=== PATIENT | female | born 1945 | race Caucasian/White ===

== ENCOUNTER 2021-06-04 17:22 | Emergency (ER) | payer MEDICARE ==
[2021-06-04] MEDS ORDERED: Aspirin Chewable 81 MG TAB ONE ×2 (18:31→19:00)
[2021-06-04] MEDS ORDERED: Nitroglycerin 2% Ointment 1 INCH/1 GM Packet ONE (18:32)
[2021-06-04] MEDS ORDERED: Aspirin 325 MG TAB PO SCH (18:45)
[2021-06-04 19:57] LABS: #Eosinphils 0.3 10x3/uL (0.0-0.5); #Monocytes 0.7 10x3/uL (0.0-1.1); #Neutrophils 3.5 10x3/uL (1.5-8.4); %Basophils 0.6 % (0.0-2.0); %Eosinophils 3.9 % (0.0-6.0); %Lymphocytes 28.2 % (18.0-47.0); %Monocytes 11.3 % (0.0-10.0); %Neutrophils 55.8 % (40.0-75.0); Hemoglobin 12.3 g/dL (12.0-15.5); Mean Corpuscular HGB CONC 31.1 g/dL (32.0-36.0); Mean Corpuscular Volume 86.6 fl (81.6-98.3); Mean Platelet Volume 11.1 fl (7.4-10.4); Platelet Count 212 10x3/uL (150-450); RBC Distribution Width 15.5 % (11.5-14.5); Red Blood Cell (RBC) Count 4.56 10x6/uL (3.90-5.03); White Blood Cell (WBC) Count 6.4 10x3/uL (3.5-10.5)
[2021-06-04 20:07] LABS: ALT (SGPT) 21 U/L (8-55); AST (SGOT) 23 U/L (5-34); Albumin 3.8 g/dL (3.4-4.8); Alkaline Phosphatase 84 U/L (40-110); Anion Gap 12 mmol/L (10-20); BUN (Urea Nitrogen) 22 mg/dL (9.8-20.1); Bilirubin, Total 0.4 mg/dL (0.2-1.2); CK (CPK) 51 U/L (29-168); Calc. Creatinine Clearance 0 mL/min (70-130); Calcium 9.2 mg/dL (7.8-10.44); Carbon Dioxide 26 mmol/L (23-31); Chloride 105 mmol/L (98-107); Globulin 3.5 g/dL (2.4-3.5); Glucose 97 mg/dL (83-110); Lipase 27 U/L (8-78); Potassium 4.3 mmol/L (3.5-5.1); Protein, Total 7.3 g/dL (5.8-8.1); Sodium 139 mmol/L (136-145)
== END 2021-06-04 21:22 | disposition home or self-care (01) ==
LOC: CSHERS 17:22
DX: M25.512 Pain in left shoulder (principal); I10 Essential (primary) hypertension
CPT/HCPCS: 71045; 80053; 82550; 83690; 84484; 85025; 93005

== ENCOUNTER 2021-06-06 09:40 | Observation (INO) | payer MEDICARE ==
[2021-06-06 10:28] LABS: #Eosinphils 0.1 10x3/uL (0.0-0.5); #Monocytes 0.7 10x3/uL (0.0-1.1); %Basophils 0.6 % (0.0-2.0); %Eosinophils 1.8 % (0.0-6.0); %Lymphocytes 24.2 % (18.0-47.0); %Monocytes 13.2 % (0.0-10.0); Hemoglobin 12.6 g/dL (12.0-15.5); Mean Corpuscular HGB CONC 31.3 g/dL (32.0-36.0); Mean Corpuscular Hemoglobin 26.8 pg (27.0-33.0); Mean Corpuscular Volume 85.5 fl (81.6-98.3); Mean Platelet Volume 11.5 fl (7.4-10.4); Platelet Count 212 10x3/uL (150-450); RBC Distribution Width 15.7 % (11.5-14.5)
[2021-06-06 10:44] LABS: ALT (SGPT) 22 U/L (8-55); AST (SGOT) 23 U/L (5-34); Albumin 3.8 g/dL (3.4-4.8); Alkaline Phosphatase 84 U/L (40-110); Anion Gap 14 mmol/L (10-20); BUN (Urea Nitrogen) 18 mg/dL (9.8-20.1); Bilirubin, Total 0.4 mg/dL (0.2-1.2); Calc. Creatinine Clearance 0 mL/min (70-130); Calcium 9.4 mg/dL (7.8-10.44); Carbon Dioxide 25 mmol/L (23-31); Chloride 104 mmol/L (98-107); Globulin 3.5 g/dL (2.4-3.5); Glucose 97 mg/dL (83-110); Lipase 21 U/L (8-78); Potassium 3.9 mmol/L (3.5-5.1); Protein, Total 7.3 g/dL (5.8-8.1); Sodium 139 mmol/L (136-145)
[2021-06-06] MEDS ORDERED: Acetaminophen 325 MG TAB ONE (13:33)
[2021-06-06] MEDS ORDERED: Aspirin 325 MG TAB ONE (13:33)
[2021-06-06] MEDS ORDERED: valACYclovir 500 MG TAB PO SCH (14:00)
[2021-06-06 14:39] LABS: Troponin I 0.014 ng/mL (< 0.028)
[2021-06-06 15:39] VITALS: BMI 34.7
[2021-06-06] MEDS ORDERED: Acetaminophen 325 MG TAB PO PRN (16:17)
[2021-06-06] MEDS ORDERED: Ondansetron ODT 4 MG TAB PO PRN (16:48)
[2021-06-06] MEDS ORDERED: Ondansetron PF 4 MG/2 ML Vial IVP PRN (16:48)
[2021-06-06 18:18] LABS: Troponin I 0.011 ng/mL (< 0.028)
[2021-06-06] MEDS: Gabapentin 300 MG CAP PO SCH (20:38)
[2021-06-06] MEDS: valACYclovir 500 MG TAB PO SCH (20:38)
[2021-06-06] MEDS ORDERED: Morphine 4 MG/ML VIAL SLOW IVP SCH (20:45)
[2021-06-07] MEDS ORDERED: traMADol HCl 50 MG TAB PO PRN (03:41)
[2021-06-07] MEDS ORDERED: Menthol/Camphor Lotion 222 ml Bottle TOP PRN ×2 (03:43→03:57)
[2021-06-07] MEDS ORDERED: HYDROmorphone 0.5 MG/0.5 ML SYRINGE SLOW IVP SCH (03:45)
[2021-06-07] MEDS ORDERED: Acetaminophen 500 MG TAB PO SCH (03:45)
[2021-06-07] MEDS ORDERED: Triamcinolone 0.025 % Cream 15GM TUBE TOP SCH (05:00)
[2021-06-07 05:02] LABS: #Eosinphils 0.1 10x3/uL (0.0-0.5); #Monocytes 0.5 10x3/uL (0.0-1.1); #Neutrophils 2.8 10x3/uL (1.5-8.4); %Basophils 0.5 % (0.0-2.0); %Eosinophils 2.1 % (0.0-6.0); %Lymphocytes 20.5 % (18.0-47.0); %Monocytes 11.7 % (0.0-10.0); Hemoglobin 12.4 g/dL (12.0-15.5); Mean Corpuscular HGB CONC 31.7 g/dL (32.0-36.0); Mean Corpuscular Hemoglobin 27.2 pg (27.0-33.0); Mean Corpuscular Volume 85.7 fl (81.6-98.3); Mean Platelet Volume 11.7 fl (7.4-10.4); Platelet Count 186 10x3/uL (150-450); RBC Distribution Width 15.9 % (11.5-14.5); Red Blood Cell (RBC) Count 4.56 10x6/uL (3.90-5.03); White Blood Cell (WBC) Count 4.3 10x3/uL (3.5-10.5)
[2021-06-07 05:06] LABS: Anion Gap 14 mmol/L (10-20); BUN (Urea Nitrogen) 18 mg/dL (9.8-20.1); Calc. Creatinine Clearance 59 mL/min (70-130); Calcium 9.2 mg/dL (7.8-10.44); Carbon Dioxide 25 mmol/L (23-31); Chloride 106 mmol/L (98-107); Glucose 113 mg/dL (83-110); Potassium 4.6 mmol/L (3.5-5.1); Sodium 140 mmol/L (136-145)
[2021-06-07] MEDS ORDERED: Sodium Chloride 0.9% 500 ML IV SCH (07:30)
[2021-06-07] MEDS: valACYclovir 500 MG TAB PO SCH (09:00)
[2021-06-07] MEDS: Gabapentin 300 MG CAP PO SCH (09:00)
[2021-06-07] MEDS ORDERED: Aspirin 81 mg Enteric Coated Tablet PO SCH (09:00)
[2021-06-07] MEDS ORDERED: Morphine 4 MG/ML VIAL SLOW IVP SCH (09:30)
[2021-06-07 11:16] VITALS: BP 141/71; TEMP 98
== END 2021-06-07 12:00 | disposition home or self-care (01) ==
LOC: CSHERS 09:40 → CSHTELE 14:24
PROVIDERS: ADMIT Internal Medicine; ATTEND Physician Assistant
DX: R07.89 Other chest pain (principal); I10 Essential (primary) hypertension; Z79.899 Other long term (current) drug therapy; Z79.82 Long term (current) use of aspirin; B02.9 Zoster without complications; K27.9 Peptic ulcer, site unspecified, unspecified as acute or chronic, without hemorrhage or perforation
CPT/HCPCS: 71045; 71275; 80048; 80053; 83690; 83880; 84484 ×2; 85025 ×2; 93005; 94760; 96374; 96375; 96376; 99285; G0378 ×3; 36415; 36416; J1170; J2270; J7030

== ENCOUNTER 2022-10-09 13:18 | Emergency (ER) | payer MEDICARE ==
[2022-10-09] MEDS ORDERED: Lidocaine 1% (PF) 30 ML VIAL ONE (14:44)
== END 2022-10-09 15:16 | disposition home or self-care (01) ==
LOC: CSHERS 13:18
DX: S91.202A Unspecified open wound of left great toe with damage to nail, initial encounter (principal); I10 Essential (primary) hypertension; E78.5 Hyperlipidemia, unspecified; E03.9 Hypothyroidism, unspecified; J44.9 Chronic obstructive pulmonary disease, unspecified; G47.30 Sleep apnea, unspecified; W22.8XXA Striking against or struck by other objects, initial encounter
CPT/HCPCS: 99283; J2001

== ENCOUNTER 2024-04-04 10:20 | Outpatient (CLI) | payer MEDICARE | END 2024-04-04 10:21 | disposition home or self-care (01) | LOC: CSHCT 10:20 | DX: R10.84 Generalized abdominal pain (principal); N32.9 Bladder disorder, unspecified; I70.90 Unspecified atherosclerosis; M47.816 Spondylosis without myelopathy or radiculopathy, lumbar region | CPT/HCPCS: 74176 ==

== ENCOUNTER 2024-06-12 14:17 | Outpatient (CLI) | payer MEDICARE | END 2024-06-12 14:18 | disposition home or self-care (01) | LOC: CSHMAMMO 14:17 | PROVIDERS: ATTEND Family Medicine | DX: Z12.31 Encounter for screening mammogram for malignant neoplasm of breast (principal); N63.15 Unspecified lump in the right breast, overlapping quadrants; N63.25 Unspecified lump in the left breast, overlapping quadrants; R92.1 Mammographic calcification found on diagnostic imaging of breast | CPT/HCPCS: 77063; 77067 ==

== ENCOUNTER 2024-06-15 08:02 | Outpatient (CLI) | payer MEDICARE | END 2024-06-15 08:03 | disposition home or self-care (01) | LOC: CSHMAMMO 08:02 | PROVIDERS: ATTEND Family Medicine | PROC: 0HBU3ZX Excision of Left Breast, Percutaneous Approach, Diagnostic (ICD-10-PCS; principal; 2024-06-15) | DX: C50.812 Malignant neoplasm of overlapping sites of left female breast (principal); C77.3 Secondary and unspecified malignant neoplasm of axilla and upper limb lymph nodes | CPT/HCPCS: 19083; 38505; 76642 ×2; 76942; 77066; G0279; 88305; 88361 ==

== ENCOUNTER 2024-08-17 11:17 | Outpatient (CLI) | payer MEDICARE ==
[2024-08-17 13:35] LABS: Hemoglobin 12.4 g/dL (12.0-15.5); Mean Corpuscular HGB CONC 30.2 g/dL (32.0-36.0); Mean Corpuscular Hemoglobin 25.9 pg (27.0-33.0); Mean Corpuscular Volume 85.8 fL (81.6-98.3); Platelet Count 238 10x3/uL (150-450); RBC Distribution Width 14.3 % (11.5-14.5); Red Blood Cell (RBC) Count 4.78 10x6/uL (3.90-5.03); White Blood Cell (WBC) Count 7.03 10x3/uL (3.5-10.5)
[2024-08-17 13:56] LABS: Anion Gap 14 mmol/L (10-20); BUN (Urea Nitrogen) 22 mg/dL (9.8-20.1); Calc. Creatinine Clearance 0 mL/min (70-130); Calcium 9.3 mg/dL (7.8-10.44); Carbon Dioxide 27 mmol/L (23-31); Chloride 105 mmol/L (98-107); Estimated GFR 34; Glucose 80 mg/dL (83-110); Potassium 4.7 mmol/L (3.5-5.1); Sodium 141 mmol/L (136-145)
== END 2024-08-17 11:18 | disposition home or self-care (01) ==
LOC: CSHLAB 11:17
PROVIDERS: ATTEND Surgery
DX: Z01.818 Encounter for other preprocedural examination (principal); C50.912 Malignant neoplasm of unspecified site of left female breast; C50.911 Malignant neoplasm of unspecified site of right female breast
CPT/HCPCS: 80048; 85027; 93005; 93010

== ENCOUNTER 2025-04-05 11:14 | Emergency (ER) | payer MEDICARE ==
[2025-04-05 11:54] LABS: #Basophils Less than 0.03 10x3/uL (0.0-0.2); #Eosinophils 0.17 10x3/uL (0.0-0.5); #Monocytes 0.26 10x3/uL (0.0-1.1); #Neutrophils 2.88 10x3/uL (1.5-8.4); %Basophils 0.5 % (0.0-2.0); %Eosinophils 4.5 % (0.0-6.0); %Lymphocytes 12.1 % (18.0-47.0); %Monocytes 6.8 % (0.0-10.0); %Neutrophils 75.8 % (40.0-75.0); Hematocrit 28.2 % (34.9-44.5); Hemoglobin 9.1 g/dL (12.0-15.5); Mean Corpuscular Hemoglobin 24.9 pg (27.0-33.0); Mean Corpuscular Volume 77.3 fL (81.6-98.3); Platelet Count 222 10x3/uL (150-450); Red Blood Cell (RBC) Count 3.65 10x6/uL (3.90-5.03); White Blood Cell (WBC) Count 3.80 10x3/uL (3.5-10.5)
[2025-04-05 12:08] LABS: ALT (SGPT) 31 U/L (Less than 34); AST (SGOT) 33 U/L (11-34); Albumin 3.2 g/dL (3.1-4.5); Alkaline Phosphatase 78 U/L (40-110); Anion Gap 16 mmol/L (10-20); BUN (Urea Nitrogen) 62 mg/dL (9.8-20.1); Bilirubin, Total 0.3 mg/dL (0.3-1.2); Calc. Creatinine Clearance 0 mL/min (70-130); Calcium 7.3 mg/dL (7.8-10.44); Carbon Dioxide 20 mmol/L (23-31); Chloride 105 mmol/L (98-107); Globulin 2.9 g/dL (2.4-3.5); Glucose 96 mg/dL (83-110); Potassium 4.0 mmol/L (3.5-5.1); Sodium 137 mmol/L (136-145)
[2025-04-05 12:15] LABS: Troponin I Less than 0.010 ng/mL (< 0.028)
[2025-04-05] MEDS ORDERED: Cefepime 2 GM VIAL ONE (12:31)
[2025-04-05] MEDS ORDERED: Ondansetron PF 4 MG/2 ML Vial ONE (12:50)
[2025-04-05 14:51] LABS: Glucose, Urine (Dipstick) 100 mg/dL (Negative); Leukocyte 500 (Negative); Protein, Urine (Dipstick) 100 mg/dl (Neg-Trace); Specific Gravity, Urine 1.015 (1.005-1.030)
[2025-04-05 15:04] LABS: Bacteria/HPF 2+ HPF (None Seen); CAUTI Indications for Culture Alt mental st,lethar; Yeast-Budding 1+ HPF (None Seen)
[2025-04-05 15:06] LABS: Urine Culture Reflex No No
== END 2025-04-05 14:52 | disposition short-term general hospital (02) ==
LOC: CSHERS 11:14
DX: N17.9 Acute kidney failure, unspecified (principal); E86.0 Dehydration; E87.20 Acidosis, unspecified; I12.9 Hypertensive chronic kidney disease with stage 1 through stage 4 chronic kidney disease, or unspecified chronic kidney disease; N18.9 Chronic kidney disease, unspecified; D64.9 Anemia, unspecified; R79.89 Other specified abnormal findings of blood chemistry; J44.9 Chronic obstructive pulmonary disease, unspecified; I48.91 Unspecified atrial fibrillation
CPT/HCPCS: 71250; 74177; 80053; 81001; 83605; 83880; 84484; 85025; 87040; 93005; J0692; 36415; 96361; 96374; 96375

== ENCOUNTER 2025-05-03 10:54 | Outpatient (CLI) | payer MEDICARE | END 2025-05-03 10:55 | disposition home or self-care (01) | LOC: CSHULT 10:54 | PROVIDERS: ATTEND Family Medicine | DX: N18.4 Chronic kidney disease, stage 4 (severe) (principal) | CPT/HCPCS: 76770 ==

== ENCOUNTER 2025-06-04 06:26 | Inpatient (IN) | payer MEDICARE ==
[2025-06-04 07:38] LABS: #Basophils 0.04 10x3/uL (0.0-0.2); #Eosinophils 0.68 10x3/uL (0.0-0.5); #Monocytes 0.55 10x3/uL (0.0-1.1); #Neutrophils 2.19 10x3/uL (1.5-8.4); %Basophils 0.8 % (0.0-2.0); %Eosinophils 14.4 % (0.0-6.0); %Lymphocytes 26.5 % (18.0-47.0); %Monocytes 11.7 % (0.0-10.0); %Neutrophils 46.4 % (40.0-75.0); Hematocrit 30.2 % (34.9-44.5); Hemoglobin 9.3 g/dL (12.0-15.5); Mean Corpuscular Hemoglobin 24.5 pg (27.0-33.0); Mean Corpuscular Volume 79.7 fL (81.6-98.3); Platelet Count 213 10x3/uL (150-450); Red Blood Cell (RBC) Count 3.79 10x6/uL (3.90-5.03); White Blood Cell (WBC) Count 4.72 10x3/uL (3.5-10.5)
[2025-06-04] MEDS ORDERED: PHENYLEPHRINE-NS 100 MCG/ML 10 ML SYRINGE ONE (07:39)
[2025-06-04] MEDS ORDERED: Lidocaine 1% (PF) 30 ML VIAL ONE (07:39)
[2025-06-04] MEDS ORDERED: Heparin 10,000 UNITS/ 10 ML VIAL ONE ×3 (07:40→08:58)
[2025-06-04] MEDS ORDERED: Nitroglycerin 50 MG/250 ML BOT 0 ML ONE (07:41)
[2025-06-04] MEDS ORDERED: Phenylephrine 40 MG/NS 250 ML 250 ML ONE (07:42)
[2025-06-04 07:55] LABS: INR-International Normal Ratio 1.1; Prothrombin Time 11.7 sec (9.5-12.1)
[2025-06-04] MEDS ORDERED: Aspirin Chewable 81 MG TAB ONE (08:15)
[2025-06-04] MEDS ORDERED: Senokot S 8.6-50 MG TAB PO PRN (08:37)
[2025-06-04] MEDS ORDERED: Calcium Carbonate 500 MG ChewTAB PO PRN (08:37)
[2025-06-04] MEDS ORDERED: Electrolyte Replacement Protocol 1 EACH FS SCH (08:45)
[2025-06-04] MEDS ORDERED: Phenylephrine 40 MG/NS 250 ML 250 ML IVPB SCH (09:15)
[2025-06-04 10:01] VITALS: BMI 29.7
[2025-06-04] MEDS ORDERED: PHOS-NAK 1 PKT PACK PO PRN (10:30)
[2025-06-04] MEDS ORDERED: Potassium Chloride 20 MEQ in Premix 1 BAG IVPB PRN (10:30)
[2025-06-04] MEDS ORDERED: Iopamidol 300 61% 100 ML VIAL FS ONE (10:31)
[2025-06-04] MEDS ORDERED: Nitroglycerin 0.4 MG TAB (25 Tab Bottle) SL PRN (11:09)
[2025-06-04] MEDS: Cholecalciferol 1,000 UNITS (25 MCG) TAB PO SCH (11:39)
[2025-06-04] MEDS: Pantoprazole 40 MG DR.TAB PO SCH (11:39)
[2025-06-04] MEDS: Gabapentin 300 MG CAP PO SCH ×2 (11:39→21:08)
[2025-06-04] MEDS: HYDROcodone/Acetaminophen 7.5/325 mg Tablet PO PRN (14:21)
[2025-06-04] MEDS: Mupirocin 1 GM TUBE NASAL DECOLONIZATION NASAL SCH (21:08)
[2025-06-04] MEDS: Ondansetron PF 4 MG/2 ML Vial IVP PRN (21:55)
[2025-06-05 05:46] LABS: #Basophils 0.04 10x3/uL (0.0-0.2); #Eosinophils 0.58 10x3/uL (0.0-0.5); #Monocytes 0.67 10x3/uL (0.0-1.1); #Neutrophils 2.55 10x3/uL (1.5-8.4); %Basophils 0.7 % (0.0-2.0); %Eosinophils 10.2 % (0.0-6.0); %Lymphocytes 32.0 % (18.0-47.0); %Monocytes 11.8 % (0.0-10.0); %Neutrophils 45.1 % (40.0-75.0); Hematocrit 27.2 % (34.9-44.5); Hemoglobin 8.4 g/dL (12.0-15.5); Mean Corpuscular Hemoglobin 25.4 pg (27.0-33.0); Mean Corpuscular Volume 82.2 fL (81.6-98.3); Platelet Count 181 10x3/uL (150-450); Red Blood Cell (RBC) Count 3.31 10x6/uL (3.90-5.03); White Blood Cell (WBC) Count 5.66 10x3/uL (3.5-10.5)
[2025-06-05 06:01] LABS: ALT (SGPT) 10 U/L (Less than 34); AST (SGOT) 23 U/L (11-34); Albumin 2.6 g/dL (3.1-4.5); Alkaline Phosphatase 76 U/L (40-110); Anion Gap 13 mmol/L (10-20); BUN (Urea Nitrogen) 18 mg/dL (9.8-20.1); Bilirubin, Total 0.2 mg/dL (0.3-1.2); Calc. Creatinine Clearance 32 mL/min (70-130); Calcium 8.6 mg/dL (7.8-10.44); Carbon Dioxide 23 mmol/L (23-31); Chloride 110 mmol/L (98-107); Globulin 3.4 g/dL (2.4-3.5); Glucose 96 mg/dL (83-110); Magnesium 1.5 mg/dL (1.6-2.6); Potassium 4.4 mmol/L (3.5-5.1); Sodium 142 mmol/L (136-145)
[2025-06-05] MEDS: Magnesium 2 GM/50 ML(in water) 2 GM in Premix 1 BAG IVPB SCH (06:14)
[2025-06-05] MEDS: Pantoprazole 40 MG DR.TAB PO SCH (08:10)
[2025-06-05] MEDS: Cholecalciferol 1,000 UNITS (25 MCG) TAB PO SCH (08:10)
[2025-06-05] MEDS: Aspirin 81 mg Enteric Coated Tablet PO SCH (08:10)
[2025-06-05] MEDS: Gabapentin 300 MG CAP PO SCH (08:10)
[2025-06-05] MEDS: Enoxaparin 40 MG (0.4 mL) SYRINGE SC SCH (08:11)
[2025-06-05] MEDS: Nystatin Powder 15 GM BOT TOP PRN (17:57)
[2025-06-05] MEDS: HYDROcodone/Acetaminophen 7.5/325 mg Tablet PO SCH (21:49)
[2025-06-06 03:57] LABS: Hematocrit 29.2 % (34.9-44.5); Hemoglobin 9.3 g/dL (12.0-15.5); Mean Corpuscular Hemoglobin 26.1 pg (27.0-33.0); Mean Corpuscular Volume 81.8 fL (81.6-98.3); Platelet Count 151 10x3/uL (150-450); Red Blood Cell (RBC) Count 3.57 10x6/uL (3.90-5.03); White Blood Cell (WBC) Count 5.56 10x3/uL (3.5-10.5)
[2025-06-06 04:11] LABS: Anion Gap 12 mmol/L (10-20); BUN (Urea Nitrogen) 16 mg/dL (9.8-20.1); Calc. Creatinine Clearance 34 mL/min (70-130); Calcium 8.4 mg/dL (7.8-10.44); Carbon Dioxide 24 mmol/L (23-31); Chloride 109 mmol/L (98-107); Glucose 95 mg/dL (83-110); Magnesium 1.7 mg/dL (1.6-2.6); Potassium 4.3 mmol/L (3.5-5.1); Sodium 141 mmol/L (136-145)
[2025-06-06] MEDS ORDERED: Thrombin 5000 UNITS/5 ML VIAL TOP SCH (07:30)
[2025-06-06] MEDS ORDERED: Lidocaine 1% (PF) 30 ML VIAL ONE (09:27)
[2025-06-06] MEDS: Carvedilol 6.25 MG TAB PO SCH (10:59)
[2025-06-06] MEDS: NIFEdipine XL 60 MG ER.TAB PO SCH (10:59)
[2025-06-06 16:01] VITALS: BMI 29.7
[2025-06-06] MEDS: Melatonin 3 MG TAB PO PRN (21:02)
[2025-06-07] MEDS: Carvedilol 6.25 MG TAB PO SCH (01:49)
[2025-06-07 03:32] LABS: Hematocrit 28.2 % (34.9-44.5); Hemoglobin 8.9 g/dL (12.0-15.5); Mean Corpuscular Hemoglobin 26.3 pg (27.0-33.0); Mean Corpuscular Volume 83.4 fL (81.6-98.3); Platelet Count 147 10x3/uL (150-450); Red Blood Cell (RBC) Count 3.38 10x6/uL (3.90-5.03); White Blood Cell (WBC) Count 5.05 10x3/uL (3.5-10.5)
[2025-06-07 03:43] LABS: Anion Gap 12 mmol/L (10-20); BUN (Urea Nitrogen) 16 mg/dL (9.8-20.1); Calc. Creatinine Clearance 33 mL/min (70-130); Calcium 8.3 mg/dL (7.8-10.44); Carbon Dioxide 25 mmol/L (23-31); Chloride 109 mmol/L (98-107); Glucose 106 mg/dL (83-110); Potassium 4.2 mmol/L (3.5-5.1); Sodium 142 mmol/L (136-145)
[2025-06-07 04:27] LABS: INR-International Normal Ratio 1.0; Prothrombin Time 11.1 sec (9.5-12.1)
[2025-06-07 04:35] LABS: PTT 20.1 sec (22.0-33.0)
[2025-06-07] MEDS ORDERED: NIFEdipine XL 60 MG ER.TAB PO SCH (09:00)
[2025-06-07 15:44] VITALS: TEMP 98.5
[2025-06-07 15:45] VITALS: BP 137/72
== END 2025-06-07 18:50 | disposition home or self-care (01) | DRG 35 ==
LOC: CSHTELE 06:44 → CSHICU 09:28 → EDSTATUS 16:05
PROVIDERS: ADMIT Specialist; ATTEND Specialist
PROC: 037L3DZ Dilation of Left Internal Carotid Artery with Intraluminal Device, Percutaneous Approach (ICD-10-PCS; principal; 2025-06-04)
PROC: 037K3DZ Dilation of Right Internal Carotid Artery with Intraluminal Device, Percutaneous Approach (ICD-10-PCS; 2025-06-04)
PROC: 30233N1 Transfusion of Nonautologous Red Blood Cells into Peripheral Vein, Percutaneous Approach (ICD-10-PCS; 2025-06-05)
PROC: 03V Upper Arteries, Restriction (ICD-10-PCS; 2025-06-06)
DX: I65.23 Occlusion and stenosis of bilateral carotid arteries (principal); I50.32 Chronic diastolic (congestive) heart failure; D64.9 Anemia, unspecified; I48.0 Paroxysmal atrial fibrillation; I10 Essential (primary) hypertension; E78.5 Hyperlipidemia, unspecified; Z88.0 Allergy status to penicillin; Z88.1 Allergy status to other antibiotic agents; Z88.5 Allergy status to narcotic agent; Z88.7 Allergy status to serum and vaccine
CPT/HCPCS: 36002; 36215; 36222; 36223; 36225; 36415; 36430; 37215; 71045; 76936; 76942; 80048; 80053; 83735; 84100; 85025; 85027; 85347; 85610; 85730; 86850; 86900; 86901; 93005; 93010; 93306; 93926; 94760; 94762; 97139; 99152; 99153; C1725; C1769; C1876; C1884; C1894; J0461; J1642; J1644; J1650; J2003; J2250; J2405; J3475; P9016; Q9967